=== PATIENT | male | born 1990 | race Caucasian/White ===

== ENCOUNTER 2018-04-07 06:35 | Emergency (ER) | payer MEDICAID ==
[2018-04-07 06:35] VITALS: BMI 23.8
[2018-04-07 06:39] VITALS: BP 124/79; PULSE 92
[2018-04-07 07:21] VITALS: RESP 18; TEMP 97.1; O2SAT 99
--- NOTE | 2018-04-07 07:45 | ED PDOC ---
HPI: General Adult Time Seen by Provider: 04/07/18 07:43 Chief Complaint (Nursing): Medical Clearance Chief Complaint (Provider): Medical Clearance History Per: Patient History/Exam Limitations: no limitations Onset/Duration Of Symptoms: Hrs Current Symptoms Are (Timing): Still Present Additional Complaint(s): 28 year old male presents to the ED for medical clearance fo incarceration. Additionally, patient reports of falling yesterday and hurting his right lower back. Patient states pain is worse with movement. Denies head injury, dysuria, hematuria, and any other medical complaints at this time. PMD: None Provided. Past Medical History Reviewed: Historical Data, Nursing Documentation, Vital Signs Vital Signs: Last Vital Signs Temp 97.1 F L 04/07/18 10:03 Pulse 92 H 04/07/18 10:03 Resp 18 04/07/18 10:03 BP 124/79 04/07/18 10:03 Pulse Ox 99 04/07/18 09:47 - Medical History PMH: Asthma, Back Problems Denies: Chronic Kidney Disease - Surgical History Surgical History: No Surg Hx - Family History Family History: States: Unknown Family Hx - Immunization History Hx Tetanus Toxoid Vaccination: No Hx Influenza Vaccination: No Hx Pneumococcal Vaccination: No - Home Medications Home Medications: Ambulatory Orders Medication Instructions Recorded Bacitracin Ointment [Bacitracin] 30 gm TOP BID #1 tube 06/24/14 Cephalexin [Keflex] 500 mg PO BID #20 cap 06/24/14 Ibuprofen [Motrin] 600 mg PO Q6 PRN #20 tab 07/24/14 Naproxen 375 mg PO TID PRN #6 tab 08/22/14 Naproxen 375 mg PO Q8 PRN #21 tab 09/22/14 Cyclobenzaprine HCl [Flexeril] 10 mg PO Q8 #15 tab 10/10/14 Ibuprofen [Motrin] 600 mg PO Q8 PRN #20 tab 10/10/14 Polyethylene Glycol/Polyvinyl 1 appl BOTHEYES DAILY PRN #1 bottle 03/16/15 [Artificial Tears] Ibuprofen [Motrin] 600 mg PO Q6H PRN #20 tab 04/07/18 - Allergies Allergies/Adverse Reactions: Allergies Allergy/AdvReac Type Severity Reaction Status Date / Time No Known Allergies Allergy Verified 09/06/16 21:51 Review of Systems ROS Statement: Except As Marked, All Systems Reviewed And Found Negative Constitutional: Positive for: Other (medical clearance) Musculoskeletal: Positive for: Back Pain (right lower back pain) Physical Exam - Reviewed Nursing Documentation Reviewed: Yes Vital Signs Reviewed: Yes - Physical Exam Appears: Positive for: Well, Non-toxic, No Acute Distress Head Exam: Positive for: ATRAUMATIC, NORMOCEPHALIC Skin: Positive for: Normal Color, Warm, Dry Eye Exam: Positive for: Normal appearance, EOMI, PERRL ENT: Positive for: Normal ENT Inspection Neck: Positive for: Normal, Painless ROM, Supple Cardiovascular/Chest: Positive for: Regular Rate, Rhythm. Negative for: Murmur Respiratory: Positive for: Normal Breath Sounds. Negative for: Respiratory Distress Gastrointestinal/Abdominal: Positive for: Normal Exam, Soft. Negative for: Tenderness Back: Positive for: Normal Inspection, Other (right lower back tenderness ) Extremity: Positive for: Normal ROM. Negative for: Pedal Edema, Deformity Neurologic/Psych: Positive for: Alert, Oriented. Negative for: Motor/Sensory Deficits Comments: right buttock tenderness. - ECG O2 Sat by Pulse Oximetry: 99 (RA) Pulse Ox Interpretation: Normal Medical Decision Making Medical Decision Making: Time: 741 Plan: -- Lumbar Spine X-ray -- Motrin 600 mg PO -- Hip Right [HIP MIN 2V w/ PELVIS RT] X-ray Time: 902 HIP/PELVIS XRAY RESULTS FINDINGS: BONES: Normal. No fracture. JOINTS: Normal. SOFT TISSUES: Normal. OTHER FINDINGS: None. IMPRESSION: No evidence of acute fracture or dislocation. Time: 904 LUMBAR SPINE XRAY RESULTS FINDINGS: BONES: Normal alignment. No listhesis. No fracture. DISC SPACES: Unremarkable. OTHER FINDINGS: Mild constipation is noted. IMPRESSION: No evidence of acute fracture or subluxation. Scribe Attestation: Documented by Alison Roger, acting as a scribe for Dr. Linda Desir MD. Provider Scribe Attestation: All medical record entries made by the Scribe were at my direction and personally dictated by me. I have reviewed the chart and agree that the record accurately reflects my personal performance of the history, physical exam, medical decision making, and the department course for this patient. I have also personally directed, reviewed, and agree with the discharge instructions and disposition. Disposition - Clinical Impression Clinical Impression: Low back pain - Disposition Referrals: [facility] [Outside] Disposition: Discharged/Transfer to Law Enforcement Disposition Time: 09:54 Condition: STABLE Additional Instructions: PATIENT MEDICALLY CLEARED FOR INCARCERATION. Prescriptions: Ibuprofen [Motrin] 600 mg PO Q6H PRN #20 tab PRN Reason: Pain, Moderate (4-7) Instructions: General (DC) Forms: [facility] ([employer])
--- NOTE | 2018-04-07 09:05 | RAD ---
PROCEDURE: Right Hip Radiographs. HISTORY: Fall COMPARISON: None. FINDINGS: BONES: Normal. No fracture. JOINTS: Normal. SOFT TISSUES: Normal. OTHER FINDINGS: None. IMPRESSION: No evidence of acute fracture or dislocation.
--- NOTE | 2018-04-07 09:07 | RAD ---
PROCEDURE: Radiographs of the Lumbar Spine. HISTORY: Fall COMPARISON: No prior. FINDINGS: BONES: Normal alignment. No listhesis. No fracture. DISC SPACES: Unremarkable. OTHER FINDINGS: Mild constipation is noted. IMPRESSION: No evidence of acute fracture or subluxation.
== END 2018-04-07 10:03 ==
LOC: H.ER 06:35
DX: M54.5 Low back pain (principal); Z02.89 Encounter for other administrative examinations; J45.909 Unspecified asthma, uncomplicated

== ENCOUNTER 2018-09-11 08:28 | Emergency (ER) | payer MEDICAID ==
[2018-09-11 08:32] VITALS: BMI 22.3
[2018-09-11 08:33] VITALS: O2SAT 99
[2018-09-11] MEDS ORDERED: Oxycodone/Acetaminophen 5/325 mg Tab PO STA (08:59)
[2018-09-11] MEDS ORDERED: Oxycodone/Acetaminophen 5/325 mg Tab ONE ×2 (09:24→09:27)
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
[2018-09-11] MEDS ORDERED: Naproxen 500 MG TAB PO STA (11:51)
[2018-09-11] MEDS ORDERED: Naproxen 500 MG TAB PO ONE (12:26)
[2018-09-11 14:12] VITALS: BP 128/78; PULSE 78; RESP 19; TEMP 97
== END 2018-09-11 14:13 | disposition home or self-care (01) ==
LOC: H.ER 08:28
DX: S01.511A Laceration without foreign body of lip, initial encounter (principal); J45.909 Unspecified asthma, uncomplicated; Z87.39 Personal history of other diseases of the musculoskeletal system and connective tissue; Y09 Assault by unspecified means